=== PATIENT | male | born 1965 | race African-American/Black ===

== ENCOUNTER 2020-07-05 10:34 | Emergency (ER) | payer SELFPAY ==
[~2020-07-05] VITALS: Ht 167.6 cm; Wt 87.0 kg
[2020-07-05] MEDS ORDERED: BACITRACIN ZINC OINT UDPKT TOP ONE (11:30)
[2020-07-05] MEDS ORDERED: TETANUS, DIPHTHERIA, PERTUSSIS VAC/PF 0.5ML (>7YR OLD) IM ONE (12:00)
[2020-07-05 12:27] VITALS: BP 130/89
== END 2020-07-05 12:31 | disposition home or self-care (01) ==
LOC: ER 10:34
DX: Z48.00 Encounter for change or removal of nonsurgical wound dressing (principal)
CPT/HCPCS: 90471; 90715; 99283; A4217

== ENCOUNTER 2020-07-11 11:07 | Emergency (ER) | payer MEDICAID ==
[~2020-07-11] VITALS: Ht 170.2 cm; Wt 82.0 kg
[2020-07-11 11:09] VITALS: BP 139/95
== END 2020-07-11 12:37 | disposition home or self-care (01) ==
LOC: ER 11:07
DX: Z48.02 Encounter for removal of sutures (principal); S61.212A Laceration without foreign body of right middle finger without damage to nail, initial encounter; Y93.89 Activity, other specified; Y92.9 Unspecified place or not applicable
CPT/HCPCS: 99281; Z7610